=== PATIENT | male | born 1985 | race Caucasian/White ===

== ENCOUNTER 2021-04-02 13:27 | Emergency (ER) | payer OTHER ==
[~2021-04-02] VITALS: Ht 167.6 cm; Wt 95.4 kg
[2021-04-02 13:40] VITALS: BP 160/98
--- NOTE | 2021-04-02 14:24 | RAD ---
XR CHEST 1V 04/02/2021 2:13 PM INDICATION: Shortness of breath COMPARISON: None available TECHNIQUE: Portable frontal view of the chest is provided. FINDINGS: The cardiomediastinal silhouette is within normal limits. Lungs are clear. There are no significant pleural effusions. There is no pulmonary vascular congestion. No pneumothora x. No suspicious osseous abnormality. IMPRESSION: There is no acute cardiopulmonary process. Electronically signed by: Silvina Orta MD (04/02/2021 2:21 PM) [facility]
--- NOTE | 2021-04-02 14:42 | PHYS DOC ---
Past History Past Surgical History: No Surgical History (GEORGE MILAN APRN) Alcohol Use: None (GEORGE MILAN APRN) General Adult EDM: Chief Complaint: SHORTNESS OF BREATH HPI: HPI: Patient is a 35-year-old male who presents stating "I feel like I have been short of breath". Patient states he was tested for Covid yesterday which was negative. Denies chest pain. Denies recent illness. Denies cough, fever, nausea/vomiting/diarrhea. Patient states "I do have a history of anxiety so I do not know if that is why I feel this way". Patient has history of anxiety, type 1 diabetes. (GEORGE MILAN APRN) Review of Systems: Review of Systems: ROS At least 10 ROS systems have been reviewed and are negative except as documented in the HPI. General: Negative except as outlined in HPI above. Skin: Negative except as outlined in HPI above. HEENT: Negative except as outlined in HPI above. Neck: Negative except as outlined in HPI above. Respiratory: Negative except as outlined in HPI above.. Cardiovascular: Negative except as outlined in HPI above. Abdomen: Negative except as outlined in HPI above. : Negative except as outlined in HPI above. Back/MSK: Negative except as outlined in HPI above. Neuro: Negative except as outlined in HPI above. Psych: Negative except as outlined in HPI above. (GEORGE MILAN APRN) Allergies: Allergies: Allergies Coded Allergies Type Severity Reaction Last Updated Verified No Known Drug Allergies 04/02/21 No (GEORGE MILAN APRN) Physical Exam: PE: Constitutional: Well developed, well nourished, no acute distress, non-toxic appearance. [] HENT: Normocephalic, atraumatic, bilateral external ears normal, oropharynx moist, no oral exudates, nose normal. [] Eyes: PERRLA, EOMI, conjunctiva normal, no discharge. [] Neck: Normal range of motion, no tenderness, supple, no stridor. [] Cardiovascular:Heart rate regular rhythm, no murmur [] Lungs & Thorax: Bilateral breath sounds clear to auscultation [] Abdomen: Bowel sounds normal, soft, no tenderness, no masses, no pulsatile masses. [] Skin: Warm, dry, no erythema, no rash. [] Back: No tenderness, no CVA tenderness. [] Extremities: No tenderness, no cyanosis, no clubbing, ROM intact, no edema. [] Neurologic: Alert and oriented X 3, normal motor function, normal sensory function, no focal deficits noted. [] Psychologic: Affect normal, judgement normal, mood normal. [] (GEORGE MILAN APRN) Current Patient Data: Vital Signs: Vital Signs Date Time Temp Pulse Resp B/P (MAP) Pulse Ox O2 Delivery O2 Flow Rate FiO2 04/02/21 13:40 98.0 85 16 160/98 (118) 100 Room Air (GEORGE MILAN APRN) EKG: EKG: [] (GEORGE MILAN APRN) Radiology/Procedures: Radiology/Procedures: [] (GEORGE MILAN APRN) Heart Score: C/O Chest Pain: No Risk Factors: Risk Factors: DM, Current or recent (<one month) smoker, HTN, HLP, family history of CAD, obesity. Risk Scores: Score 0 - 3: 2.5% MACE over next 6 weeks - Discharge Home Score 4 - 6: 20.3% MACE over next 6 weeks - Admit for Clinical Observation Score 7 - 10: 72.7% MACE over next 6 weeks - Early Invasive Strategies (GEORGE MILAN APRN) Course & Med Decision Making: Course & Med Decision Making Pertinent Labs and Imaging studies reviewed. (See chart for details) [] 35-year-old male presents with a feeling of shortness of breath. Denies all other symptoms. Chest x-ray ordered. Lung sounds are clear bilaterally. Patient is hemodynamically stable. No signs of respiratory distress. PERC and Wells scale are both negative. Discussed all results with patient. Patient most likely is experiencing symptoms due to anxiety. Discussed return precautions with patient in length. Advised patient to follow-up with his PCP if he still has concerns. (GEORGE MILAN APRN) Dragon Disclaimer: Dragon Disclaimer: This electronic medical record was generated, in whole or in part, using a voice recognition dictation system. (GEORGE MILAN APRN) Attending Co-Sign The patient was seen and interviewed as well as examined at the bedside. The chart was reviewed. The case was discussed. Agree with the plan of care. (SHANNAN VALADEZ DO) Departure Departure: Impression: Primary Impression: Shortness of breath Disposition: HOME / SELF CARE / HOMELESS Condition: STABLE Referrals: NON,STAFF (PCP) Patient Instructions: Shortness of Breath, [id number] Additional Instructions: You were seen in the emergency room for a feeling of shortness of breath. You were tested for Covid yesterday which was negative. We did a chest x-ray to make sure there was no acute abnormalities. Your chest x-ray was unremarkable. You were also given a inhaler to help with symptoms. Please return to the emergency room if you have increasing shortness of breath, chest pain or any symptoms that are concerning. Otherwise follow-up with your PCP for further management. EMERGENCY DEPARTMENT GENERAL DISCHARGE INSTRUCTIONS Thank you for coming to [facility] (ED) today and trusting us with you care. We trust that you had a positivie experience in our Emergency Department. If you wish to speak to the department management, you may call the director at [phone]. YOUR FOLLOW UP INSTRUCTIONS ARE FOLLOWS: 1. Do you have a private Doctor? If you do not have a private doctor, please ask for a resource list of physicians or clinics that may be able to assist you with follow up care. 2. The Emergency Physician has interpreted your x-rays. The X-Ray specialist will also review them. If there is a change in the findings, you will be notified in 48 hours when at all possible. 3. A lab test or culture has been done, your results will be reviewed and you will be notified if you need a change in treatment. ADDITIONAL INSTRUCTIONS AND INFORMATION: 1. Your care today has been supervised by a physician who is specially trained in emergency care. Many problems require more than one evaluation for a complete diagnosis and treatment. We recommend that you schedule your follow up appointment as recommended to ensure complete treatment of you illness or injury. If you are unable to obtain follow up care and continue to have a problem, or if your condition worsens, we recommend that you return to the ED. 2. We are not able to safely determine your condition over the phone nor are we able to give sound medical advice over the phone. For these safety reasons, if you call for medical advice we will ask you to come to the ED for further evaluation. 3. If you have any questions regarding these discharge instructions please call the ED at [phone]. SAFETY INFORMATION: In the interest of safety, wellness, and injury prevention; we encourage you to wear your sealbelt, if you smoke; quite smoking, and we encourage family to use a protective helmet for bicycling and other sporting events that present an increased risk for head injury. IF YOUR SYMPTOMS WORSEN OR NEW SYMPTOMS DEVELOP, OR YOU HAVE CONCERNS ABOUT YOUR CONDITION; OR IF YOUR CONDITION WORSENS WHILE YOU ARE WAITING FOR YOUR FOLLOW UP APPOINTMENT; EITHER CONTACT YOUR PRIMARY CARE DOCTOR, THE PHYSICIAN WHOSE NAME AND NUMBER YOU WERE GIVEN, OR RETURN TO THE ED IMMEDIATELY. GEORGE MILAN APRN Apr 02, 2021 14:42 SHANNAN VALADEZ DO Apr 06, 2021 10:06
[2021-04-02] MEDS ORDERED: ALBUTEROL SULFATE 8GM INHALER. INH ONE (14:45)
[2021-04-02] MEDS ORDERED: ALBUTEROL SULFATE 8GM INHALER. ONE (14:50)
== END 2021-04-02 14:54 | disposition home or self-care (01) ==
LOC: ER 13:27
DX: R06.02 Shortness of breath (principal)
CPT/HCPCS: 71045; 99283-25